=== PATIENT | female | born 1995 ===

== ENCOUNTER 2017-10-14 01:05 | Emergency (ER) | payer BC ==
[2017-10-14 01:19] VITALS: BP 130/80; PULSE 74; RESP 16; TEMP 98.2; O2SAT 98
--- NOTE | 2017-10-14 01:48 | ED PDOC ---
HPI: Headache Time Seen by Provider: 10/14/17 01:15 Chief Complaint (Nursing): Headache Chief Complaint (Provider): Headache History Per: Patient History/Exam Limitations: no limitations Onset/Duration Of Symptoms: Days (x1 week) Current Symptoms Are (Timing): Still Present Severity: Severe Pain Scale Rating Of: 5 (currently) Quality: Pressure Preceeding Symptoms: None Additional Complaint(s): 22 year old female presents to ED with complaints of gradual headache x1 week and has a past medical history of B12 and iron deficiency and asthma. Describes headache as a severe pressure but currently rates it as a 5/10 in intensity. 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 Notes headache is usually frontal but today it is present at her left temporal region. (+) nausea, vomiting, and numbness/tingling to bilateral feet. Patient states she is due for her B12 shot. PCP: Dr. Salter Past Medical History Reviewed: Historical Data, Nursing Documentation, Vital Signs Vital Signs: Last Vital Signs Temp 98.2 F 10/14/17 01:17 Pulse 74 10/14/17 01:17 Resp 16 10/14/17 01:17 BP 130/80 10/14/17 01:17 Pulse Ox 98 10/14/17 01:17 - Medical History PMH: Anemia, Asthma - Surgical History Surgical History: No Surg Hx - Family History Family History: States: No Known Family Hx - Living Arrangements Living Arrangements: With Family - Social History Current smoker - smoking cessation education provided: No Ex-Smoker (has not smoked in the last 12 months): No Alcohol: None Drugs: Denies - Home Medications Home Medications: Ambulatory Orders Medication Instructions Recorded Aluminum Hydroxide/Magnesium H 30 ml PO Q6 #1 udc 01/22/16 [Maalox 30 ml] Ibuprofen [Motrin] 600 mg PO Q6H PRN #20 tab 10/14/17 - Allergies Allergies/Adverse Reactions: Allergies Allergy/AdvReac Type Severity Reaction Status Date / Time No Known Allergies Allergy Verified 01/22/16 00:41 Review of Systems ROS Statement: Except As Marked, All Systems Reviewed And Found Negative Gastrointestinal: Positive for: Nausea, Vomiting Neurological: Positive for: Numbness (numbness/tingling to bilateral feet), Headache Physical Exam - Reviewed Nursing Documentation Reviewed: Yes Vital Signs Reviewed: Yes - Physical Exam Appears: Positive for: Non-toxic, No Acute Distress Head Exam: Positive for: ATRAUMATIC, NORMAL INSPECTION, NORMOCEPHALIC Skin: Positive for: Normal Color, Warm, Dry Eye Exam: Positive for: EOMI, Normal appearance, PERRL ENT: Positive for: Normal ENT Inspection Neck: Positive for: Normal, Painless ROM, Supple Cardiovascular/Chest: Positive for: Regular Rate, Rhythm. Negative for: Bradycardia Respiratory: Positive for: Normal Breath Sounds. Negative for: Respiratory Distress Gastrointestinal/Abdominal: Positive for: Normal Exam, Soft. Negative for: Tenderness Back: Positive for: Normal Inspection Extremity: Positive for: Normal ROM. 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 Negative for: Motor/Sensory Deficits , Aphasia, Facial Droop - Laboratory Results Result Diagrams: 10/14/17 01:48 10/14/17 01:48 - ECG O2 Sat by Pulse Oximetry: 98 (RA) Pulse Ox Interpretation: Normal Medical Decision Making Medical Decision Makin Initial impression: 1st time headache, non-thunderclap Initial plan: * CT HEAD * BETA HCG QUANT * Labs * Trop I * Reglan 20mg IVP * Re-eval 0246 CT HEAD FINDINGS: Brain: Unremarkable. No hemorrhage. No significant white matter disease. No edema. Ventricles: Unremarkable. No ventriculomegaly. Bones/joints: Unremarkable. No acute fracture. Soft tissues: Unremarkable. Sinuses: Unremarkable as visualized. No acute sinusitis. Mastoid air cells: Unremarkable as visualized. No mastoid effusion. IMPRESSION: No intracranial hemorrhage.Please see discussion above. 0346 Labs reviewed: no clinically significant abnormalities. pt feesl better. appears well and is comfortable. no neurologic findings on exam. Patient is stable for discharge home. Referral given for outpatient neurology Dx: headache Scribe Attestation: Documented by Angela Marte acting as a scribe for Lazara Perkins MD. Scribe Attestation: All medical record entries made by the Scribe were at my direction and personally dictated by me. I have reviewed the chart and agree that the record accurately reflects my personal performance of the history, physical exam, medical decision making, and the department course for this patient. I have also personally directed, reviewed, and agree with the discharge instructions and disposition. Disposition - Clinical Impression Clinical Impression: Headache - Patient ED Disposition Is Patient to be Admitted: No Counseled Patient/Family Regarding: Studies Performed, Diagnosis, Need For Followup - Disposition Referrals: [facility] [Outside] [facility] [Outside] Mariano Noble MD [Staff Provider] - Disposition: Routine/Home Disposition Time: 03:30 Condition: IMPROVED Additional Instructions: follow up with neurologist for further workup return to the ED with any worsening or concerning symptoms Prescriptions: Ibuprofen [Motrin] 600 mg PO Q6H PRN #20 tab PRN Reason: Pain, Moderate (4-7) Instructions: General Headache (ED) Forms: [facility] (Syriac)
[2017-10-14 01:55] LABS: BASO # 0.1 K/uL (0.0-0.2); BASO % 0.8 % (0.0-2.0); EOS # 0.1 K/uL (0.0-0.7); EOS % 1.6 % (0.0-4.0); HEMATOCRIT 35.8 % (34.0-47.0); LYMPH # 2.7 K/uL (1.0-4.3); LYMPH % 35.4 % (20.0-40.0); MEAN CELL VOLUME 90.5 fl (81.0-99.0); MEAN CORPUSCULAR HEMOGLOBIN 30.5 pg (27.0-31.0); MEAN CORPUSCULAR HGB CONC 33.8 g/dL (33.0-37.0); MONO # 0.5 K/uL (0.0-0.8); MONO % 7.1 % (0.0-10.0); NEUT # 4.2 K/uL (1.8-7.0); NEUT % 55.1 % (50.0-75.0); RED CELL DISTRIBUTION WIDTH 12.5 % (11.5-14.5); WHITE BLOOD COUNT 7.7 K/uL (4.8-10.8)
[2017-10-14 02:09] LABS: ALB/GLOB RATIO 1.6 (1.0-2.1); ALKALINE PHOSPHATASE 56 U/L (38-126); ALT/SGPT 30 U/L (9-52); AST/SGOT 25 U/L (14-36); BILIRUBIN,TOTAL 0.5 mg/dl (0.2-1.3); BLOOD UREA NITROGEN 16 mg/dl (7-17); CARBON DIOXIDE 27 mmol/L (22-30); CHLORIDE 101 mmol/L (98-107); GFR AFRICAN-AMERICAN > 60; GLUCOSE,RANDOM 93 mg/dL (65-105); POTASSIUM 3.9 MMOL/L (3.6-5.0); SODIUM 140 mmol/l (132-148)
--- NOTE | 2017-10-14 08:09 | CT ---
PROCEDURE: CT HEAD WITHOUT CONTRAST. HISTORY: headache COMPARISON: None available. TECHNIQUE: Axial computed tomography images were obtained through the head/brain without intravenous contrast. Radiation dose: Total exam DLP = 830.76 mGy-cm. This CT exam was performed using one or more of the following dose reduction techniques: Automated exposure control, adjustment of the mA and/or kV according to patient size, and/or use of iterative reconstruction technique. FINDINGS: HEMORRHAGE: No intracranial hemorrhage. BRAIN: No mass effect or edema. No atrophy or chronic microvascular ischemic changes. VENTRICLES: Unremarkable. No hydrocephalus. CALVARIUM: Unremarkable. PARANASAL SINUSES: Unremarkable as visualized. No significant inflammatory changes. MASTOID AIR CELLS: Unremarkable as visualized. No inflammatory changes. OTHER FINDINGS: None. IMPRESSION: No acute intracranial abnormalities. No significant findings to account for the clinical presentation. Concordant results (preliminary interpretation) provided by [facility]. Procedure Completed: 02:35 Preliminary ([facility]) Report: Dictated and Authenticated: 02:46 Final Interpretation: 08:07 10/14/2017
== END 2017-10-14 04:07 | disposition home or self-care (01) ==
LOC: H.ER 01:05
DX: R51 Headache (principal); J45.909 Unspecified asthma, uncomplicated
CPT/HCPCS: 70450; 80053; 84484; 84702; 85025; 96374; 99284; J2405; J2765

== ENCOUNTER 2017-12-17 09:21 | Emergency (ER) | payer BC ==
[2017-12-17 09:23] VITALS: BMI 26.5
[2017-12-17 09:25] VITALS: BP 119/83; PULSE 74; RESP 16; TEMP 98.8; O2SAT 98
[2017-12-17] MEDS ORDERED: Sodium Chloride 0.9% 1,000 ML IV STA (09:43)
[2017-12-17] MEDS ORDERED: Morphine 4 MG/ML VIAL ONE (09:47)
--- NOTE | 2017-12-17 09:52 | ED PDOC ---
HPI: Headache Time Seen by Provider: 12/17/17 09:32 Chief Complaint (Nursing): Headache Chief Complaint (Provider): RUSSELL History Per: Patient History/Exam Limitations: no limitations Additional Complaint(s): Pt reports L sided RUSSELL X 2 months, constant in past 1 week, not relieved with Indomethacin at home, associated with nausea. Also reports blurry vision in L eye that resolves after rubbing it. Denies fever, vomiting, neck stiffness, paresthesias, weakness. Past Medical History Reviewed: Nursing Documentation, Vital Signs Vital Signs: Last Vital Signs Temp 98.8 F 12/17/17 09:23 Pulse 74 12/17/17 09:23 Resp 16 12/17/17 09:23 BP 119/83 12/17/17 09:23 Pulse Ox 98 12/17/17 09:23 - Medical History PMH: Anemia, Asthma, HTN, Hypercholesterolemia - Family History Family History: States: Unknown Family Hx - Living Arrangements Living Arrangements: With Family - Social History Current smoker - smoking cessation education provided: No Alcohol: None - Home Medications Home Medications: Ambulatory Orders Medication Instructions Recorded Aluminum Hydroxide/Magnesium H 30 ml PO Q6 #1 udc 01/22/16 [Maalox 30 ml] Ibuprofen [Motrin] 600 mg PO Q6H PRN #20 tab 10/14/17 Acetaminophen with Codeine 1 tab PO Q6H PRN #5 tab 12/17/17 [Tylenol with Codeine No. 3 300 mg-30 mg] Ondansetron ODT [Zofran ODT] 4 mg PO Q8H PRN #20 odt 12/17/17 - Allergies Allergies/Adverse Reactions: Allergies Allergy/AdvReac Type Severity Reaction Status Date / Time No Known Allergies Allergy Verified 01/22/16 00:41 Review of Systems Constitutional: Negative for: Fever, Chills Eyes: Positive for: Vision Change Cardiovascular: Negative for: Chest Pain Respiratory: Negative for: Cough, Shortness of Breath Gastrointestinal: Positive for: Nausea. Negative for: Vomiting, Abdominal Pain , Diarrhea Genitourinary Female: Negative for: Dysuria, Hematuria Musculoskeletal: Negative for: Neck Pain Skin: Negative for: Rash, Lesions Neurological: Positive for: Headache. Negative for: Weakness, Numbness, Incoordination, Change in Speech, Confusion, Seizures, Altered Mental Status, Dizziness Physical Exam - Reviewed Nursing Documentation Reviewed: Yes Vital Signs Reviewed: Yes - Physical Exam Appears: Positive for: Well, No Acute Distress Head Exam: Positive for: ATRAUMATIC, NORMAL INSPECTION (No temporal cord appreciated) Skin: Positive for: Normal Color, Warm, Dry Eye Exam: Positive for: Normal appearance, EOMI, PERRL Neck: Positive for: Normal, Painless ROM, Supple Cardiovascular/Chest: Positive for: Regular Rate, Rhythm Respiratory: Positive for: Normal Breath Sounds Extremity: Positive for: Normal ROM Neurologic/Psych: 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 Negative for: Motor/Sensory Deficits, Aphasia, Facial Droop - Laboratory Results Result Diagrams: 12/17/17 09:50 12/17/17 09:50 - ECG O2 Sat by Pulse Oximetry: 98 Pulse Ox Interpretation: Normal - Physician Consult Information Physician Contacted: Clive Hassan Outcome Of Conversation: Recommends MRI with and without contrast. Medical Decision Making Medical Decision Makin yo female with L sided RUSSELL. - labs - IVF - Morphine - Zofran Accession No. : [id number] Patient Name / ID : ANKIT NEAL / [id number] Exam Date : 12/17/2017 11:39:37 ( Approved ) Study Comment : Sex / Age : F / 22Y Creator : Preet Ray MD Dictator : Preet Ray MD Manufacturing Technologist : Front Desk Admin : Preet Ray MD Approver2 : Report Date : 12/17/2017 13:33:59 My Comment : PROCEDURE: MRI BRAIN WITH AND WITHOUT CONTRAST HISTORY: L sided RUSSELL, nausea COMPARISON: Unenhanced head CT 10/14/2017 TECHNIQUE: Multiplanar, multisequence MR images of the brain were obtained with and without intravenous contrast enhancement. FINDINGS: HEMORRHAGE: None DWI: No evidence of an acute or early subacute infarction. BRAIN PARENCHYMA: Intrinsic signal throughout the ascencio and white matter structures above below the tentorium includes appears within normal limits including the brainstem. There is no mass effect, parenchymal edema or loss of the corticomedullary differentiation. Midline brain anatomy appears within normal limits including the corpus callosum, brainstem and craniocervical junction. There is no suspicious extra-axial fluid collection identified. ENHANCEMENT: No abnormal intracranial enhancement. VENTRICLES: Unremarkable. No hydrocephalus. CRANIUM: Unremarkable. ORBITS: Grossly unremarkable. PARANASAL SINUSES/MASTOIDS: Mucosal inflammatory changes affect at the anterior left ethmoid air cells. VASCULAR SYSTEM: Skull base flow voids intact. OTHER FINDINGS: None . IMPRESSION: Unremarkable pre and post contrast enhanced MRI of the brain. Incidental limited anterior left ethmoid mucosal inflammatory changes noted. 13:[address] Hassan, agrees with discharge home. Disposition - Clinical Impression Clinical Impression: Headache - Patient ED Disposition Is Patient to be Admitted: No - Disposition Referrals: Provider TBD, [Primary Care Provider] - Clive Hassan MD [Medical Doctor] - Disposition: Routine/Home Disposition Time: 13:57 Condition: IMPROVED Prescriptions: Acetaminophen with Codeine [Tylenol with Codeine No. 3 300 mg-30 mg] 1 tab PO Q6H PRN #5 tab PRN Reason: Pain, Severe (8-10) Ondansetron ODT [Zofran ODT] 4 mg PO Q8H PRN #20 odt PRN Reason: Nausea/Vomiting Instructions: Headache, Adult Forms: [facility] (Upper Sorbian)
[2017-12-17 10:05] LABS: BASO % 0.5 % (0.0-2.0); EOS # 0.1 K/uL (0.0-0.7); EOS % 1.9 % (0.0-4.0); LYMPH # 1.2 K/uL (1.0-4.3); LYMPH % 21.2 % (20.0-40.0); MEAN CELL VOLUME 90.7 fl (81.0-99.0); MEAN CORPUSCULAR HEMOGLOBIN 30.9 pg (27.0-31.0); MEAN CORPUSCULAR HGB CONC 34.1 g/dL (33.0-37.0); MEAN PLATELET VOLUME 8.9 fl (7.2-11.7); MONO # 0.3 K/uL (0.0-0.8); MONO % 4.8 % (0.0-10.0); NEUT % 71.6 % (50.0-75.0); NRBC % 0.1 % (0.0-0.0); RBC 4.53 Mil/uL (3.80-5.20); RED CELL DISTRIBUTION WIDTH 12.4 % (11.5-14.5); WHITE BLOOD COUNT 5.6 K/uL (4.8-10.8)
[2017-12-17 10:17] LABS: ALB/GLOB RATIO 1.6 (1.0-2.1); ALBUMIN 4.4 g/dL (3.5-5.0); ALT/SGPT 68 U/L (9-52); AST/SGOT 71 U/L (14-36); BLOOD UREA NITROGEN 12 mg/dl (7-17); CALCIUM 9.4 mg/dL (8.4-10.2); GFR AFRICAN-AMERICAN > 60; GFR NON-AFRICAN AMERICAN > 60
[2017-12-17] MEDS ORDERED: Gadodiamide 287 MG/ML VIAL (15ML) IV ONE (11:30)
--- NOTE | 2017-12-17 13:35 | MRI ---
PROCEDURE: MRI BRAIN WITH AND WITHOUT CONTRAST HISTORY: L sided RUSSELL, nausea COMPARISON: Unenhanced head CT 10/14/2017 TECHNIQUE: Multiplanar, multisequence MR images of the brain were obtained with and without intravenous contrast enhancement. FINDINGS: HEMORRHAGE: None DWI: No evidence of an acute or early subacute infarction. BRAIN PARENCHYMA: Intrinsic signal throughout the ascencio and white matter structures above below the tentorium includes appears within normal limits including the brainstem. There is no mass effect, parenchymal edema or loss of the corticomedullary differentiation. Midline brain anatomy appears within normal limits including the corpus callosum, brainstem and craniocervical junction. There is no suspicious extra-axial fluid collection identified. ENHANCEMENT: No abnormal intracranial enhancement. VENTRICLES: Unremarkable. No hydrocephalus. CRANIUM: Unremarkable. ORBITS: Grossly unremarkable. PARANASAL SINUSES/MASTOIDS: Mucosal inflammatory changes affect at the anterior left ethmoid air cells. VASCULAR SYSTEM: Skull base flow voids intact. OTHER FINDINGS: None . IMPRESSION: Unremarkable pre and post contrast enhanced MRI of the brain. Incidental limited anterior left ethmoid mucosal inflammatory changes noted.
== END 2017-12-17 14:23 | disposition home or self-care (01) ==
LOC: H.ER 09:21 → SUPCPDRO 09:21 → H.ER 14:23
DX: R51 Headache (principal); R11.0 Nausea; E78.00 Pure hypercholesterolemia, unspecified; I10 Essential (primary) hypertension; J45.909 Unspecified asthma, uncomplicated
CPT/HCPCS: 70553; 80053; 81025; 85025; 85651; 96374; 96375; 99285; A9579; J1885; J2270; J2405; J7040